=== PATIENT | female | born 1965 | race Caucasian/White ===

== ENCOUNTER → 2016-10-09 | Outpatient (CLI) | payer OTHER ==
--- NOTE | 2016-10-09 13:33 | MM ---
Reason for exam: additional evaluation requested from prior study. Last mammogram was performed 11 months ago. History: Patient is postmenopausal. Family history of breast cancer in aunt at age 65. Benign MG stereo VAD BX RT of the right breast, November 24, 2015. Physical Findings: Nurse did not find any significant physical abnormalities on exam. MG Diagnostic Mammo w CAD HEMA Bilateral CC and MLO view(s) were taken. Prior study comparison: November 15, 2015, right breast MG work up mamm w CAD RT. November 08, 2015, bilateral MG screening mammo w CAD. The breast tissue is heterogeneously dense. This may lower the sensitivity of mammography. Finding: There are typically benign round, grouped/clustered calcifications in the upper outer quadrant, posterior position of the right breast. Previous mammotome biopsy in the right breast x 2. These results were verbally communicated with the patient and result sheet given to the patient on 10/09/16. ASSESSMENT: Benign, BI-RAD 2 RECOMMENDATION: Routine screening mammogram of both breasts in 1 year.
== END | disposition home or self-care (01) ==
LOC: RADMAMWWP 12:50
PROVIDERS: ATTEND Family Medicine
DX: R92.8 Other abnormal and inconclusive findings on diagnostic imaging of breast (principal)

== ENCOUNTER 2024-11-30 12:38 | Observation (INO) | payer OTHER ==
--- NOTE | 2024-11-30 12:48 | ED ---
General Adult HPI - General Chief complaint: Chest Pain Stated complaint: Chest Pain Time Seen by Provider: 11/30/24 12:40 Source: patient, EMS Mode of arrival: EMS Limitations: no limitations - History of Present Illness Initial comments: Patient presents to the ED by ambulance for evaluation. Patient states that she had stopped taking her blood pressure medications for about 2 months (due to insurance reasons), but she was restarted on losartan 3 days ago. Patient states that she was checking her blood pressure readings this morning, and they continued to increase, so she called for an ambulance. She states that her highest blood pressure reading was in the 200s over 100s. Patient states that she has been taking her losartan as prescribed. Patient also reports having chest pain in the ambulance, and she states that she was given 3 sublingual nitroglycerin tabs with complete resolution of her chest pain. Patient states that she did also have associated dyspnea, nausea and lightheadedness. Patient denies having any chest pain or symptoms currently. Patient was also given aspirin by EMS. Patient denies trauma or injury, fever or chills, headache, focal numbness/weakness/neuro deficit, visual changes, speech difficulty, back pain, pleuritic pain, cough or cold symptoms, palpitations, syncope, abdominal pain, vomiting or diarrhea, bloody or melanotic stool, dysuria or urinary symptoms, decreased urine output, leg or calf swelling or pain, or any other symptoms or complaints. - Related Data Allergies Allergy/AdvReac Type Severity Reaction Status Date / Time Sulfa (Sulfonamide AdvReac Swelling Verified 11/30/24 12:44 Antibiotics) Review of Systems ROS Statement: Those systems with pertinent positive or pertinent negative responses have been documented in the HPI. ROS Other: All systems not noted in ROS Statement are negative. Past Medical History Past Medical History: Diabetes Mellitus, Hypertension Past Surgical History: Cholecystectomy, Hysterectomy Past Psychological History: Anxiety, Depression Smoking Status: Current every day smoker Past Alcohol Use History: Occasional Past Drug Use History: Marijuana General Exam Limitations: no limitations General appearance: alert, in no apparent distress Eye exam: Present: normal appearance ENT exam: Present: mucous membranes moist Neck exam: Present: other (Trachea is in midline) Respiratory exam: Present: normal lung sounds bilaterally. Absent: respiratory distress, wheezes, rales, rhonchi, stridor, chest wall tenderness Cardiovascular Exam: Present: regular rate, normal rhythm, normal heart sounds, other (Normal radial pulses bilaterally) GI/Abdominal exam: Present: soft. Absent: distended, tenderness, guarding Extremities exam: Present: other (Negative Homans' sign bilaterally). Absent: tenderness, pedal edema, calf tenderness Neurological exam: Present: alert, oriented X3 Psychiatric exam: Present: normal affect Skin exam: Present: warm, dry, normal color Course Vital Signs 11/30/24 11/30/24 12:40 13:23 Temperature 99.1 F Pulse Rate 91 72 Respiratory 18 16 Rate Blood Pressure 196/99 166/87 O2 Sat by Pulse 98 97 Oximetry - Reevaluation(s) Reevaluation #1: 11/30/24 13:50 Patient continues to deny having any chest pain while in the ED. Patient's blood pressure has now improved to 166/87. Patient denies development of any new symptoms while in the ED. Patient remains alert and breathing comfortably. Patient and son are aware the patient's test results, and patient agrees with hospital admission at this time. 11/30/24 13:59 Case, H&P and test results were discussed with [facility] RN Basil Stoner. She accepts hospital admission on behalf of herself and Dr. Allan. She requests cardiology consultation, as well as placing an order for an echocardiogram. She has no further recommendations at this time. EKG Findings - EKG Comments: EKG Findings:: ED physician interpretation (interpreted by me): Normal sinus rhythm, ventricular rate of 75 bpm, normal NJ and QRS intervals, normal QT interval, normal axis, nonspecific ST and T wave abnormality, no ST elevation Medical Decision Making - Medical Decision Making Was pt. sent in by a medical professional or institution (, PA, INFUSION RN, urgent care, hospital, or snf...) When possible be specific @ -No Did you speak to anyone other than the patient for history (EMS, parent, family, police, friend...)? What history was obtained from this source @ -No Did you review nursing and triage notes (agree or disagree)? Why? @ -I reviewed and agree with nursing and triage notes Were old charts reviewed (outside hosp., previous admission, EMS record, old EKG, old radiological studies, urgent care reports/EKG's, snf records)? Report findings @ -No old charts were reviewed Differential Diagnosis (chest pain, altered mental status, abdominal pain women, abdominal pain men, vaginal bleeding, weakness, fever, dyspnea, syncope, headache, dizziness, GI bleed, back pain, seizure, CVA, palpatations, mental health, musculoskeletal)? @ -Hypertension, hypertensive urgency, hypertensive emergency, chest pain, ACS/CO, dysrhythmia, lightheadedness, electrolyte abnormality, dehydration, dyspnea, COPD, asthma, CHF, pleural effusion, pneumonia, chest wall pain, esophageal spasm, GERD, anxiety, medication noncompliance, medication reaction, this is not meant to be a complete list. EKG interpreted by me (3pts min.). @ -As above X-rays interpreted by me (1pt min.). @ -Chest x-ray was reviewed myself and shows no acute cardiopulmonary process. I agree with the radiologist's interpretation as above. CT interpreted by me (1pt min.). @ -None done U/S interpreted by me (1pt. min.). @ -None done What testing was considered but not performed or refused? (CT, X-rays, U/S, labs)? Why? @ -None What meds were considered but not given or refused? Why? @ -None Did you discuss the management of the patient with other professionals (professionals i.e. , PA, INFUSION RN, lab, RT, psych nurse, social sciences chair, die attaching machine tender, teacher, systems support officer, dependency case manager)? Give summary @ -As above. Was smoking cessation discussed for >3mins.? @ -No Was critical care preformed (if so, how long)? @ -No Were there social determinants of health that impacted care today? How? (Homelessness, low income, unemployed, alcoholism, drug addiction, transp ortation, low edu. Level, literacy, decrease access to med. care, senior living, rehab)? @ -No Was there de-escalation of care discussed even if they declined (Discuss DNR or withdrawal of care, Hospice)? DNR status @ -No What co-morbidities impacted this encounter? (DM, HTN, Smoking, COPD, CAD, Cancer, CVA, ARF, Chemo, Hep., AIDS, mental health diagnosis, sleep apnea, morbid obesity)? @ -None Was patient admitted / discharged? Hospital course, mention meds given and route, prescriptions, significant lab abnormalities, going to OR and other pertinent info. @ -Patient's blood pressure has improved since coming to the ED. Patient has been chest pain-free while in the ED. Patient's EKG shows nonspecific findings, and there is no old EKG available for comparison at this time. Patient's initial troponin is negative. Patient's labs are fairly unremarkable. Patient's chest x-ray is also unremarkable. Given the patient's symptoms and cardiac risk factors, will admit the patient to the hospital for cardiac monitoring, serial troponins, cardiology consultation and further evaluation/care. [facility] RN Basil Stoner has accepted hospital admission. Patient agrees with this plan. Undiagnosed new problem with uncertain prognosis? @ -No Drug Therapy requiring intensive monitoring for toxicity (Heparin, Nitro, Insulin, Cardizem)? @ -No Were any procedures done? @ -No Diagnosis/symptom? @ -Hypertension Acute, or Chronic, or Acute on Chronic? @ -Acute on chronic Uncomplicated (without systemic symptoms) or Complicated (systemic symptoms)? @ -Default Side effects of treatment? @ -No Exacerbation, Progression, or Severe Exacerbation? @ -No Poses a threat to life or bodily function? How? (Chest pain, USA, CO, pneumonia, PE, COPD, DKA, ARF, appy, cholecystitis, CVA, Diverticulitis, Homicidal, Suicidal, threat to staff... and all critical care pts) @ -No Diagnosis/symptom? @ -Chest pain Acute, or Chronic, or Acute on Chronic? @ -Acute Uncomplicated (without systemic symptoms) or Complicated (systemic symptoms)? @ -Default Side effects of treatment? @ -None Exacerbation, Progression, or Severe Exacerbation] @ -No Poses a threat to life or bodily function? @ -No - Lab Data Result diagrams: 11/30/24 12:56 11/30/24 12:56 Lab Results 11/30/24 11/30/24 11/30/24 Range/Units 12:56 12:56 12:56 WBC 7.85 (4.50-10.00) 10*3/uL RBC 4.04 L (4.10-5.20) 10*6/uL Hgb 12.6 (12.0-15.0) g/dL Hct 35.3 L (37.2-46.3) % MCV 87.4 (80.0-97.0) fL MCH 31.2 (27.0-32.0) pg MCHC 35.7 (32.0-37.0) g/dL Plt Count 232 (140-440) 10*3/uL MPV 10.3 (9.5-12.2) fL Immature Gran % (Auto) 0.3 % Neutrophils % 74.0 % Lymphocytes % 20.4 % Monocytes % 4.3 % Eosinophils % 0.4 % Basophils % 0.6 % Immature Gran # 0.02 (0.00-0.04) 10*3/uL Neutrophils # 5.81 (1.80-7.70) 10*3/uL Lymphocytes # 1.60 (0.90-5.00) 10*3/uL Monocytes # 0.34 (0.20-1.00) 10*3/uL Eosinophils # 0.03 L (0.04-0.35) 10*3/uL Basophils # 0.05 (0.00-0.10) 10*3/uL PT 10.5 (10.0-12.5) sec INR 0.9 (<1.2) APTT 23.5 (22.0-30.0) sec Sodium 131 L (137-145) mmol/L Potassium 4.3 (3.5-5.1) mmol/L Chloride 101 (98-107) mmol/L Carbon Dioxide 22 (22-30) mmol/L Anion Gap 8 mmol/L BUN 9 (7-17) mg/dL Creatinine 0.49 L (0.52-1.04) mg/dL Est GFR (CKD-EPI)AfAm >90 (>60 ml/min/1.73 sqM) Est GFR (CKD-EPI)NonAf >90 (>60 ml/min/1.73 sqM) Glucose 194 H (74-99) mg/dL Calcium 9.7 (8.4-10.2) mg/dL Magnesium 1.7 (1.6-2.3) mg/dL Total Bilirubin 0.7 (0.2-1.3) mg/dL AST 33 (14-36) U/L ALT 31 (4-34) U/L Alkaline Phosphatase 84 (38-126) U/L Troponin I (0.000-0.034) ng/mL NT-Pro-B Natriuret Pep 250 pg/mL Total Protein 7.1 (6.3-8.2) g/dL Albumin 4.6 (3.5-5.0) g/dL 11/30/24 Range/Units 12:56 WBC (4.50-10.00) 10*3/uL RBC (4.10-5.20) 10*6/uL Hgb (12.0-15.0) g/dL Hct (37.2-46.3) % MCV (80.0-97.0) fL MCH (27.0-32.0) pg MCHC (32.0-37.0) g/dL Plt Count (140-440) 10*3/uL MPV (9.5-12.2) fL Immature Gran % (Auto) % Neutrophils % % Lymphocytes % % Monocytes % % Eosinophils % % Basophils % % Immature Gran # (0.00-0.04) 10*3/uL Neutrophils # (1.80-7.70) 10*3/uL Lymphocytes # (0.90-5.00) 10*3/uL Monocytes # (0.20-1.00) 10*3/uL Eosinophils # (0.04-0.35) 10*3/uL Basophils # (0.00-0.10) 10*3/uL PT (10.0-12.5) sec INR (<1.2) APTT (22.0-30.0) sec Sodium (137-145) mmol/L Potassium (3.5-5.1) mmol/L Chloride (98-107) mmol/L Carbon Dioxide (22-30) mmol/L Anion Gap mmol/L BUN (7-17) mg/dL Creatinine (0.52-1.04) mg/dL Est GFR (CKD-EPI)AfAm (>60 ml/min/1.73 sqM) Est GFR (CKD-EPI)NonAf (>60 ml/min/1.73 sqM) Glucose (74-99) mg/dL Calcium (8.4-10.2) mg/dL Magnesium (1.6-2.3) mg/dL Total Bilirubin (0.2-1.3) mg/dL AST (14-36) U/L ALT (4-34) U/L Alkaline Phosphatase (38-126) U/L Troponin I <0.012 (0.000-0.034) ng/mL NT-Pro-B Natriuret Pep pg/mL Total Protein (6.3-8.2) g/dL Albumin (3.5-5.0) g/dL - Radiology Data Chest x-ray: No acute cardiopulmonary disease/process. Disposition Clinical Impression: Chest pain, Hypertension Disposition: ADMITTED IP TO THIS HOSP Condition: Stable Is patient prescribed a controlled substance at d/c from ED?: No Referrals: Junior Mohamud MD [Primary Care Provider] - 1-2 days Time of Disposition: 14:00
[2024-11-30 13:04] LABS: Basophils # (A) 0.05 10*3/uL (0.00-0.10); Basophils % (A) 0.6 %; Eosinophils # (A) 0.03 10*3/uL (0.04-0.35); Eosinophils % (A) 0.4 %; HCT 35.3 % (37.2-46.3); HGB 12.6 g/dL (12.0-15.0); Lymphocytes % (A) 20.4 %; MCH 31.2 pg (27.0-32.0); MCHC 35.7 g/dL (32.0-37.0); MCV 87.4 fL (80.0-97.0); Mean Platelet Volume 10.3 fL (9.5-12.2); Monocytes # (A) 0.34 10*3/uL (0.20-1.00); Monocytes % (A) 4.3 %; Neutrophils # (A) 5.81 10*3/uL (1.80-7.70); Platelet Count 232 10*3/uL (140-440); RBC 4.04 10*6/uL (4.10-5.20); RDW 13.2 % (11.5-14.5); WBC 7.85 10*3/uL (4.50-10.00)
[2024-11-30] MEDS: NITROGLYCERIN OINT 1 INCH/GM PACKET TOPICAL STA (13:06)
--- NOTE | 2024-11-30 13:08 | XR ---
EXAMINATION TYPE: XR chest 2V DATE OF EXAM: 11/30/2024 1:05 PM COMPARISON: None CLINICAL INDICATION: Female, 59 years old with history of Chest Pain; [facility] TECHNIQUE: XR chest 2V Frontal and lateral views of the chest. FINDINGS: Lungs/Pleura: There is no evidence of pleural effusion, focal consolidation, or pneumothorax. Pulmonary vascularity: Unremarkable. Heart/mediastinum: Cardiomediastinal silhouette is unremarkable. Musculoskeletal: No acute osseous pathology. Other findings: None IMPRESSION: No acute cardiopulmonary disease/process. [facility], , 11/30/2024 1:06 PM
[2024-11-30 13:13] LABS: ALT 31 U/L (4-34); AST 33 U/L (14-36); African American GFR (CKD) >90 (>60 ml/min/1.73 sqM); Albumin 4.6 g/dL (3.5-5.0); Alkaline Phosphatase 84 U/L (38-126); Anion Gap 8 mmol/L; Blood Urea Nitrogen 9 mg/dL (7-17); Calcium 9.7 mg/dL (8.4-10.2); Carbon Dioxide 22 mmol/L (22-30); Chloride 101 mmol/L (98-107); Glucose 194 mg/dL (74-99); INR 0.9 (<1.2); Magnesium 1.7 mg/dL (1.6-2.3); Non-African American GFR(CKD) >90 (>60 ml/min/1.73 sqM); Partial Thromboplastin Time 23.5 sec (22.0-30.0); Potassium 4.3 mmol/L (3.5-5.1); Prothrombin Time 10.5 sec (10.0-12.5); Sodium 131 mmol/L (137-145); Total Bilirubin 0.7 mg/dL (0.2-1.3); Total Protein 7.1 g/dL (6.3-8.2)
[2024-11-30 13:22] LABS: NT-Pro-B-Type Natriuretic Pept 250 pg/mL
[2024-11-30] MEDS ORDERED: NALOXONE 0.4 MG/ML 1 ML VIAL IV PRN (14:03)
[2024-11-30] MEDS ORDERED: ACETAMINOPHEN TAB 325 MG TAB PO PRN (17:17)
--- NOTE | 2024-11-30 17:30 | P.HPIM ---
History of Present Illness H&P Date: 11/30/24 History of Presenting Illness: Patient is a pleasant 59-year-old female with a past medical history of hypertension and nicotine dependence. Patient reports she had some insurance issues and stopped taking her medications about 2 months ago but has been ex periencing uncontrolled blood pressures and was restarted on her home medication regimen with losartan 3 days ago. Patient states she was checking her blood pressures at home and had recurrent blood pressures 200s over 100s so she called EMS for transport to the hospital. Patient reports upon EMS arrival she started experiencing some midsternal chest pain/discomfort radiating into left shoulder and down left arm accompanied by nausea and shortness of breath. EMS administered 3 sublingual nitroglycerin tablets along with aspirin 324 mg x 1 dose. Patient reported full resolution of chest pain upon arrival to our facility. Patient denies having any recent illnesses or exposure to known ill contacts, headache, lightheadedness, dizziness, changes in vision or hearing, palpitations, cough or congestion, abdominal pain, vomiting, or experiencing any numbness/tingling/weakness/swelling in her extremities. She report broken tooth left upper molar with pain and mild swelling. Upon arrival to our facility, patient underwent evaluation in the emergency department. Vital signs on arrival show blood pressure 196/99, heart rate 91, respiratory rate 18, temp 99.1 F, and SpO2 of 98% on room air. EKG completed showing normal sinus rhythm at 75 bpm basic T wave Abnormalities in inferior leads II and aVF. Chest x-ray completed negative for acute cardiopulmonary process. Labs completed and reviewed. CBC showing no significant abnormalities. Coagulation profile normal findings. BMP showing hyponatremia with sodium of 131 and hyperglycemia with blood glucose of 194. Magnesium slightly low at 1.7. Liver profile unremarkable. Troponin was negative at less than 0.012 and proBNP was 250. Review of systems: Pertinent positives and negatives as discussed in HPI, a complete review of systems was performed and all other systems are negative. Physical exam: Vital signs reviewed and stable. General: Nontoxic, no distress and appears stated age. Derm: Skin warm and dry, normal coloration for ethnicity. Head: Atraumatic, normocephalic and symmetric. Eyes: EOM's intact, no lid lag, and anicteric sclera Mouth: no lip lesions, mucus membranes moist. Poor dentition Cardiovascular: regular rate and rhythm with normal S1S2, no murmur, positive posterior tibial pulses bilaterally, and cap refill < 2 seconds. Lungs: Respirations even, regular, and unlabored on room air. Lungs CTA, no rho nchi, no rales, no wheezing, and no accessory muscle usage. Abdominal: soft, nontender to palpation, no guarding, no appreciable organomegaly Ext: ROM intact. No gross muscle atrophy, no edema, no contractures Neuro: Speech clear, face symmetrical and CN II-XII grossly intact with no noted focal neuro deficits Psych: Alert and oriented to person, place, time, and situation. Appropriate and pleasant affect. Assessment and Plan of Care: Chest pain, rule out acute coronary event Hypertensive urgency -Cardiology consulted, appreciate recommendations -Telemetry monitoring -Trend troponins -Cardiac diet, NPO at midnight -Aspirin 81 mg daily, atorvastatin 40 mg nightly, and losartan 100 mg nightly -Lipid profile with a.m. labs. -Echocardiogram Dental pain -Patient reports pain in broken to his left upper molar with mild swelling surrounding. - Start patient on oral antibiotics with amoxicillin 1000 mg p.o. x 1 dose followed by 500 mg every 8 hours x 3 days. - Order placed for x-ray to rule out dental abscess. - Symptomatic care and pain management with Orajel, Tylenol 650 mg every 6 hours as needed for mild pain and/or fever and Elizabeth 5milligram tablets every 4 hours as needed for moderate pain. Hyperglycemia -Blood glucose 194. Patient denies history of diabetes mellitus. Order placed for hemoglobin A1c. Nicotine dependence -Patient reports 40-year smoking history of 1 pack/day. - Recommend smoking cessation. Order placed for nicotine patch 21 mg daily. Data and imaging reviewed: -As stated above in HPI The painnt is admitted with an anticipated less than 2 midnight stay for evaluation of chest pain and hypertensive urgency CODE STATUS full code DVT prophylaxis: Lovenox Discussed with: Patient, RN, and ED physician Anticipated discharge date: 24 to [address]: Home Patient was seen independently by Nurse Practitioner. This document was prepared using [employer] dictation software. Please allow for errors in catering truck driver while rare they do occur. Basil Stoner NP rendered care for this patient independently, reviewed the findin gs and plan as documented in the note above and agree with plan. I did not physically speak with or examine the patient on this date. Past Medical History Past Medical History: Diabetes Mellitus, Hypertension Past Surgical History: Cholecystectomy, Hysterectomy Past Psychological History: Anxiety, Depression Smoking Status: Current every day smoker Past Alcohol Use History: Occasional Past Drug Use History: Marijuana Medications and Allergies Home Medications Medication Instructions Recorded Confirmed Type Acetaminophen Tab [Tylenol Tab] 1,500 mg PO Q6H PRN 11/30/24 11/30/24 History Atorvastatin [Lipitor] 40 mg PO HS 11/30/24 11/30/24 History Cetirizine HCl [Zyrtec] 10 mg PO HS 11/30/24 11/30/24 History Citalopram Hydrobromide [CeleXA] 10 mg PO HS 11/30/24 11/30/24 History Ibuprofen [Motrin Ib] 800 mg PO Q6H PRN 11/30/24 11/30/24 History Losartan Potassium 100 mg PO HS 11/30/24 11/30/24 History Allergies Allergy/AdvReac Type Severity Reaction Status Date / Time Sulfa (Sulfonamide Allergy Swelling Verified 11/30/24 14:37 Antibiotics) tongue sulfamethoxazole Allergy Swelling Verified 11/30/24 14:37 [From Bactrim] tongue trimethoprim [From Bactrim] Allergy Swelling Verified 11/30/24 14:37 tongue Physical Exam Vitals: Vital Signs Temp Pulse Resp BP Pulse Ox 11/30/24 13:23 72 16 166/87 97 11/30/24 12:40 99.1 F 91 18 196/99 98 Intake and Output 11/29/24 11/30/24 11/30/24 22:59 06:59 14:59 Other: Weight 58.967 kg Results CBC & Chem 7: 11/30/24 12:56 11/30/24 12:56 Labs: Abnormal Lab Results - Last 24 Hours (Table) 11/30/24 11/30/24 Range/Units 12:56 12:56 RBC 4.04 L (4.10-5.20) 10*6/uL Hct 35.3 L (37.2-46.3) % Eosinophils # 0.03 L (0.04-0.35) 10*3/uL Sodium 131 L (137-145) mmol/L Creatinine 0.49 L (0.52-1.04) mg/dL Glucose 194 H (74-99) mg/dL
[2024-11-30] MEDS: NICOTINE 21MG/24HR PATCH TRANSDERM SCH (17:47)
[2024-11-30] MEDS: HYDROcodone/APAP 5-325MG 1 EACH TAB PO PRN (17:47)
[2024-11-30] MEDS: AMOXICILLIN 500 MG CAP PO ONE (17:58)
[2024-11-30] MEDS: BENZOCAINE 20 % GEL 11.9 GM TUBE MM ONE (17:58)
--- NOTE | 2024-11-30 18:49 | XR ---
EXAMINATION TYPE: XR facial bones limited INDICATION: Patient age:Female; 59 years old; Reason for study: Left upper jaw, r/o dental abscess L upper molar; [facility]. pain COMPARISON: None TECHNIQUE: The facial bones were evaluated in frontal and lateral projections. FINDINGS: No acute fracture or dislocation. No discrete osseous erosion. Right maxillary impacted wisdom tooth is identified. Dental fillings identified. No definitive periapical lucency surrounding the left uppe r molar. Multilevel degenerative changes of the cervical spine with disc space narrowing, endplate sc lerosis, and anterior osteophytosis. The visualized paranasal sinuses appear clear. No gross evidence for soft tissue swelling. IMPRESSION: 1. No acute fracture or dislocation. 2. Impacted right maxillary wisdom tooth. No gross evidence of dental abscess with the limitations o f the radiograph. Consider further evaluation with CT if there is continued clinical concern for dent al abscess. [facility], , 11/30/2024 6:46 PM
[2024-11-30] MEDS: CITALOPRAM HYDROBROMIDE 10 MG TAB PO SCH (21:18)
[2024-11-30] MEDS: ATORVASTATIN 40 MG TAB PO SCH (21:19)
[2024-11-30] MEDS: LORATADINE 10 MG TAB PO SCH (21:19)
[2024-11-30] MEDS: LOSARTAN 50 MG TAB PO SCH (21:19)
[2024-12-01] MEDS: AMOXICILLIN 500 MG CAP PO SCH (00:09)
[2024-12-01] MEDS: ASPIRIN 81 MG PO SCH (07:57)
[2024-12-01] MEDS: ENOXAPARIN 40 MG/0.4 ML SYRINGE SQ SCH (07:57)
[2024-12-01 08:03] VITALS: BP 138/66; PULSE 62; RESP 16; TEMP 98.2
[2024-12-01 08:27] LABS: ALT 34 U/L (8-44); AST 32 U/L (13-35); Albumin 4.2 g/dL (3.8-4.9); Albumin/Globulin Ratio 2.21 Ratio (1.60-3.17); Alkaline Phosphatase 73 U/L (41-126); BUN/Creat Ratio 20.33 Ratio (12.00-20.00); Blood Urea Nitrogen 12.2 mg/dL (9.0-27.0); Calcium 9.2 mg/dL (8.7-10.3); Carbon Dioxide 23.5 mmol/L (21.6-31.8); Chloride 101 mmol/L (96-109); Globulin 1.9 g/dL (1.6-3.3); Glucose 155 mg/dL (70-110); Potassium 4.2 mmol/L (3.5-5.5); Sodium 136 mmol/L (135-145); Total Bilirubin 0.4 mg/dL (0.3-1.2); Total Protein 6.1 g/dL (6.2-8.2)
[2024-12-01 08:43] LABS: Basophils # (A) 0.06 X 10*3/uL (0.00-0.10); Basophils % (A) 0.9 %; Eosinophils # (A) 0.21 X 10*3/uL (0.04-0.35); Eosinophils % (A) 3.2 %; HCT 36.7 % (37.2-46.3); HGB 12.1 g/dL (12.0-15.0); Lymphocytes # (A) 3.43 X 10*3/uL (0.90-5.00); Lymphocytes % (A) 51.9 %; MCV 91.1 FL (80.0-97.0); Mean Platelet Volume 10.9 FL (9.5-12.2); Monocytes # (A) 0.54 X 10*3/uL (0.20-1.00); Monocytes % (A) 8.2 %; NRBC Per 100 WBC 0 X 10*3/uL (0.00-0.01); Neutrophils # (A) 2.36 X 10*3/uL (1.80-7.70); Neutrophils % (A) 35.6 %; Platelet Count 232 X 10*3/uL (140-440); RBC 4.03 X 10*6/uL (4.10-5.20); RDW 13.6 % (11.5-14.5); WBC 6.61 X 10*3/uL (4.50-10.00)
[2024-12-01] MEDS: PIOGLITAZONE 15 MG TAB PO SCH (10:29)
[2024-12-01] MEDS: metFORMIN 500 MG TAB PO SCH (10:29)
--- NOTE | 2024-12-01 10:42 | P.CRDCN ---
History of Present Illness History of present illness: HISTORY OF PRESENTING ILLNESS This is a pleasant 59-year-old female past medical history significant for hypertension, diabetes mellitus, dyslipidemia and chronic nicotine dependen ce. 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 We have been asked to see in consultation for chest pain and hypertension. She admits that she has only been back on her medications for the past 3 days. She went through an episode of lack of insurance and was therefore not following with her primary care physician or taking any of her recommended medications. She indicates blood pressure at home was over 200 systolic. She also has been having significant dental pain which she thinks may have contributed to her blood pressure being elevated. She has an appointment with a dentist later this week. She has no further symptoms of chest discomfort. DIAGNOSTICS EKG reveals sinus mechanism, heart rate [address] or T wave abnormalities noted. Telemetry tracings indicate sinus mechanism. Chest xray negative for any acute cardiopulmonary process. Laboratory reviewed, WBC 6, hemoglobin 12.1, platelets 232, sodium 136, potassium 4.2, creatinine 0.6, hemoglobin A1c 7.7, troponin negative x 3, NT proBNP 250. Current cardiac medications include losartan 100 mg daily and Lipitor 40 mg at bedtime. REVIEW OF SYSTEMS At the time of my exam: CONSTITUTIONAL: Denies fever or chills. CARDIOVASCULAR: Denies chest pain, shortness of breath, orthopnea, PND or palpitations. RESPIRATORY: Denies cough. GASTROINTESTINAL: Denies abdominal pain, diarrhea, constipation, nausea or vomit ing. MUSCULOSKELETAL: Denies myalgias. NEUROLOGIC: Denies numbness, tingling, headache or weakness. ENDOCRINE: Denies fatigue, weight change, polydipsia or polyurina. GENITOURINARY: Denies burning, hematuria or urgency with micturation. HEMATOLOGIC: Denies history of anemia or bleeding. PHYSICAL EXAMINATION Blood pressure 138/66 heart rate 62 afebrile and maintaining oxygen saturation on room air. CONSTITUTIONAL: No apparent distress. HEENT: Head is normocephalic. Pupils are equal, round. Sclerae anicteric. Mucous membranes of the mouth are moist. No JVD. No carotid bruit. CHEST EXAMINATION: Lungs are clear to auscultation. No chest wall tenderness is noted on palpation or with deep breathing. HEART EXAMINATION: Regular rate and rhythm. S1, S2 heard. No murmurs, gallops or rub. ABDOMEN: Soft, nontender. EXTREMITIES: 2+ peripheral pulses, no lower extremity edema and no calf tender ness. NEUROLOGIC EXAMINATION: Patient is awake, alert and oriented x3. ASSESSMENT Chest pain, atypical Hypertension Dyslipidemia Diabetes mellitus Chronic nicotine dependence PLAN An acute coronary event has been ruled out. Echocardiogram has been ordered and will be reviewed. Optimize glucose control with Actos and Glucophage. Continue losartan. Stable for discharge from a cardiac perspective. We will see her in the office the week of December 21 and do an outpatient stress test. Thank you kindly for this consultation. Nurse Practitioner note has been reviewed, I agree with a documented findings and plan of care. Patient was seen and examined. Past Medical History Past Medical History: Diabetes Mellitus, Hypertension History of Any Multi-Drug Resistant Organisms: None Reported Past Surgical History: Cholecystectomy, Hysterectomy Past Psychological History: Anxiety, Depression Smoking Status: Current every day smoker Past Alcohol Use History: Occasional Past Drug Use History: Marijuana Medications and Allergies Home Medications Medication Instructions Recorded Confirmed Type Acetaminophen Tab [Tylenol Tab] 1,500 mg PO Q6H PRN 11/30/24 11/30/24 History Atorvastatin [Lipitor] 40 mg PO HS 11/30/24 11/30/24 History Cetirizine HCl [Zyrtec] 10 mg PO HS 11/30/24 11/30/24 History Citalopram Hydrobromide [CeleXA] 10 mg PO HS 11/30/24 11/30/24 History Ibuprofen [Motrin Ib] 800 mg PO Q6H PRN 11/30/24 11/30/24 History Losartan Potassium 100 mg PO HS 11/30/24 11/30/24 History Allergies Allergy/AdvReac Type Severity Reaction Status Date / Time Sulfa (Sulfonamide Allergy Swelling Verified 11/30/24 14:37 Antibiotics) tongue sulfamethoxazole Allergy Swelling Verified 11/30/24 14:37 [From Bactrim] tongue trimethoprim [From Bactrim] Allergy Swelling Verified 11/30/24 14:37 tongue Physical Exam Vitals: Vital Signs Temp Pulse Pulse Resp BP BP BP 12/01/24 06:57 98.2 F 62 16 138/66 12/01/24 01:20 98.1 F 63 17 145/73 11/30/24 20:00 97.6 F 64 17 153/73 11/30/24 16:50 97.7 F 71 16 156/73 11/30/24 16:02 97.8 F 68 19 145/72 11/30/24 15:05 79 18 169/81 11/30/24 13:23 72 16 166/87 11/30/24 12:40 99.1 F 91 18 196/99 Pulse Ox 12/01/24 06:57 96 12/01/24 01:20 97 11/30/24 20:00 95 11/30/24 16:50 94 L 11/30/24 16:02 98 11/30/24 15:05 97 11/30/24 13:23 97 11/30/24 12:40 98 Intake and Output 11/30/24 12/01/24 12/01/24 22:59 06:59 14:59 Other: Voiding Method Toilet Toilet # Voids 2 2 Results 12/01/24 04:49 12/01/24 04:49 Cardiac Enzymes 11/30/24 11/30/24 11/30/24 Range/Units 12:56 12:56 16:01 AST 33 (14-36) U/L Troponin I <0.012 <0.012 (0.000-0.034) ng/mL 11/30/24 12/01/24 Range/Units 20:20 04:49 AST 32 (14-36) U/L Troponin I <0.012 (0.000-0.034) ng/mL Coagulation 11/30/24 Range/Units 12:56 PT 10.5 (10.0-12.5) sec APTT 23.5 (22.0-30.0) sec CBC 11/30/24 12/01/24 Range/Units 12:56 04:49 WBC 7.85 6.61 (4.50-10.00) 10*3/uL RBC 4.04 L 4.03 L (4.10-5.20) 10*6/uL Hgb 12.6 12.1 (12.0-15.0) g/dL Hct 35.3 L 36.7 L (37.2-46.3) % Plt Count 232 232 (140-440) 10*3/uL Comprehensive Metabolic Panel 11/30/24 12/01/24 Range/Units 12:56 04:49 Sodium 131 L 136 (137-145) mmol/L Potassium 4.3 4.2 (3.5-5.1) mmol/L Chloride 101 101 (98-107) mmol/L Carbon Dioxide 22 23.5 (22-30) mmol/L BUN 9 12.2 (7-17) mg/dL Creatinine 0.49 L 0.6 (0.52-1.04) mg/dL Glucose 194 H 155 H (74-99) mg/dL Calcium 9.7 9.2 (8.4-10.2) mg/dL AST 33 32 (14-36) U/L ALT 31 34 (4-34) U/L Alkaline Phosphatase 84 73 (38-126) U/L Total Protein 7.1 6.1 L (6.3-8.2) g/dL Albumin 4.6 4.2 (3.5-5.0) g/dL Current Medications Generic Name Dose Route Start Last Admin Trade Name Freq PRN Reason Stop Dose Admin Acetaminophen 650 mg 11/30/24 17:17 Acetaminophen Tab 325 Mg Tab PO Q6HR PRN Mild Pain or Fever > 100.5 Hydrocodone Bitart/Acetaminophen 1 each 11/30/24 17:17 12/01/24 06:47 Hydrocodone/Apap 5-325mg 1 Each Tab PO 1 each Q4HR PRN Administration Moderate Pain (Scale 4 to 6) Amoxicillin 500 mg 12/01/24 00:00 12/01/24 07:57 Amoxicillin 500 Mg Cap PO 12/04/24 00:00 500 mg Q8HR JOHN Administration Atorvastatin Calcium 40 mg 11/30/24 21:00 11/30/24 21:19 Atorvastatin 40 Mg Tab PO 40 mg HS JOHN Administration Citalopram Hydrobromide 10 mg 11/30/24 21:00 11/30/24 21:18 Citalopram Hydrobromide 10 Mg Tab PO 10 mg HS JOHN Administration Enoxaparin Sodium 40 mg 12/01/24 09:00 12/01/24 07:57 Enoxaparin 40 Mg/0.4 Ml Syringe SQ 40 mg DAILY JOHN Administration Loratadine 10 mg 11/30/24 21:00 11/30/24 21:19 Loratadine 10 Mg Tab PO 10 mg HS JOHN Administration Losartan Potassium 100 mg 11/30/24 21:00 11/30/24 21:19 Losartan 50 Mg Tab PO 100 mg HS JOHN Administration Metformin HCl 500 mg 12/01/24 09:30 12/01/24 10:29 Metformin 500 Mg Tab PO 500 mg BID-W/MEALS JOHN Administration Naloxone HCl 0.2 mg 11/30/24 14:03 Naloxone 0.4 Mg/Ml 1 Ml Vial IV Q2M PRN Opioid Reversal Nicotine 1 patch 11/30/24 17:15 12/01/24 07:57 Nicotine 21mg/24hr Patch TRANSDERM 1 patch DAILY JOHN Administration Pioglitazone HCl 15 mg 12/01/24 09:30 12/01/24 10:29 Pioglitazone 15 Mg Tab PO 15 mg DAILY JOHN Administration Intake and Output 11/30/24 12/01/24 12/01/24 22:59 06:59 14:59 Other: Voiding Method Toilet Toilet # Voids 2 2 12/01/24 04:49 12/01/24 04:49
--- NOTE | 2024-12-01 11:26 | P.DS ---
Providers Date of admission: 11/30/24 14:03 Expected date of discharge: 12/01/24 Attending physician: Georgette Allan MD Consults: 11/30/24 14:03 Consult Physician Urgent Consulting Provider: Saurabh Bynum Consult Reason/Comments: chest pain Do you want consulting provider notified?: Yes Primary care physician: Clay Arreola MD Hospital Course: Discharge Diagnosis: Chest pain, acute coronary event ruled out. EKG showing normal sinus rhythm. Troponins were trended all negative at less than 0.012 x 3 draws. Echocardiogram was completed showing a preserved EF of 60% with minimal mitral and tricuspid regurgitation, no pulmonary hypertension, and no pericardial effusion. Patient is medically optimized for discharge at this time, cardiology clearing patient from their perspective recommending outpatient follow-up in their office for outpatient stress testing. Hypertensive urgency. Resumed home medication regimen with losartan 100 mg nightly. Blood pressure stable upon discharge at 138/66. Dental pain/infection. X-ray showing no evidence of dental abscess. Patient has broken tooth left upper molar with mild swelling surrounding. She was given amoxicillin 1000 mg p.o. x 1 dose and discharged home on amoxicillin 500 mg every 8 hours for an additional 3 days. Newly diagnosed type II Diabetes mellitus. Patient hyperglycemic upon arrival with blood glucose of 194. Hemoglobin A1c was 7.7%. Patient was provided with glucometer and RN instructed on use. She was started on Glucophage and Actos. Nicotine dependence. Recommend smoking cessation. Prescription sent for nicotine patch 21 mg daily. Hospital Course: Patient is a pleasant 59-year-old female with a past medical history of hypertension and nicotine dependence. Patient reports she had some insurance issues and stopped taking her medications about 2 months ago but has been experiencing uncontrolled blood pressures and was restarted on her home medication regimen with losartan 3 days ago. Patient states she was checking her blood pressures at home and had recurrent blood pressures 200s over 100s so she called EMS for transport to the hospital. Patient reports upon EMS arrival she started experiencing some midsternal chest pain/discomfort radiating into left shoulder and down left arm accompanied by nausea and shortness of breath. EMS administered 3 sublingual nitroglycerin tablets along with aspirin 324 mg x 1 dose. Patient reported full resolution of chest pain upon arrival to our facility. Patient denies having any recent illnesses or exposure to known ill contacts, headache, lightheadedness, dizziness, changes in vision or hearing, palpitations, cough or congestion, abdominal pain, vomiting, or experiencing any numbness/tingling/weakness/swelling in her extremities. She report broken tooth left upper molar with pain and mild swelling. Upon arrival to our facility, patient underwent evaluation in the emergency department. Vital signs on arrival show blood pressure 196/99, heart rate 91, respiratory rate 18, temp 99.1 F, and SpO2 of 98% on room air. EKG completed showing normal sinus rhythm at 75 bpm with T wave Abnormalities in inferior leads II and aVF. Chest x-ray completed negative for acute cardiopulmonary process. Labs completed and reviewed. CBC showing no significant abnormalities. Coagulation profile normal findings. BMP showing hyponatremia with sodium of 131 and hyperglycemia with blood glucose of 194. Magnesium slightly low at 1.7. Liver profile unremarkable. Troponin was negative at less than 0.012 and proBNP was 250. Patient admitted under services with consultation to cardiology. Troponins were trended all negative at less than 0.012 x 3 draws. She had full resolution of chest pain and currently only complaint is dental pain. Facial x-ray completed showing an impacted right maxillary wisdom tooth but no evidence of dental abscess within the limitations of x-ray. Patient was evaluated by cardiology and echocardiogram was completed. Echocardiogram was completed showing a preserved EF of 60% with minimal mitral and tricuspid regurgitation, no pulmonary hypertension, and no pericardial effusion. Patient cleared from cardiac perspective for discharge. Hemoglobin A1c was 7.7%. Patient was provided with glucometer and RN instructed on use. She was started on Glucophage and Actos. Patient also placed on amoxicillin for dental infection, reports having an appointment on 12/03/2024 for evaluation. Patient is medically optimized for discharge at this time, cardiology clearing patient from their perspective recommending outpatient follow-up in their office for outpatient stress testing. Patient to follow-up outpatient with PCP in 1 to 2 days and cardiology in 2-weeks. Physical exam: Vital signs reviewed and stable. General: Nontoxic, no distress and appears stated age. Derm: Skin warm and dry, normal coloration for ethnicity. Head: Atraumatic, normocephalic and symmetric. Eyes: EOM's intact, no lid lag, and anicteric sclera Mouth: no lip lesions, mucus membranes moist. Poor dentition Cardiovascular: regular rate and rhythm with normal S1S2, no murmur, positive posterior tibial pulses bilaterally, and cap refill < 2 seconds. Lungs: Respirations even, regular, and unlabored on room air. Lungs CTA, no rhonchi, no rales, no wheezing, and no accessory muscle usage. Abdominal: soft, nontender to palpation, no guarding, no appreciable organomegal y Ext: ROM intact. No gross muscle atrophy, no edema, no contractures Neuro: Speech clear, face symmetrical and CN II-XII grossly intact with no noted focal neuro deficits Psych: Alert and oriented to person, place, time, and situation. Appropriate and pleasant affect. A total of 34 minutes of time were spent preparing this complex discharge summary. Pt was discharged on 12/01/2024 at 11:23 AM. Patient was seen independently by Nurse Practitioner. This document was prepared using [employer] dictation software. Please allow for errors in brick yard hand while rare they do occur. Basil Stoner NP rendered care for this patient independently, reviewed the findings and plan as documented in the note above. I did not physically speak with or examine the patient on this date. Patient Condition at Discharge: Stable Plan - Discharge Summary New Discharge Prescriptions: New Pioglitazone [Actos] 15 mg PO DAILY 30 Days #30 tab Amoxicillin 500 mg PO Q8HR 2 Days #7 cap metFORMIN HCL [Glucophage] 500 mg PO BID-W/MEALS 30 Days #60 tab Nicotine 21Mg/24Hr Patch [Habitrol] 1 patch TRANSDERM DAILY 30 Days #30 patch HYDROcodone/APAP 5-325MG [[place] 5-325] 1 each PO Q4HR PRN #18 tab PRN Reason: Moderate Pain (Scale 4 To 6) Continue Acetaminophen Tab [Tylenol] 1,500 mg PO Q6H PRN PRN Reason: Pain Citalopram Hydrobromide [CeleXA] 10 mg PO HS Atorvastatin [Lipitor] 40 mg PO HS Ibuprofen [Motrin Ib] 800 mg PO Q6H PRN PRN Reason: Pain Cetirizine HCl [Zyrtec] 10 mg PO HS Losartan Potassium 100 mg PO HS Discharge Medication List Acetaminophen Tab [Tylenol] 1,500 mg PO Q6H PRN 11/30/24 [History] Atorvastatin [Lipitor] 40 mg PO HS 11/30/24 [History] Cetirizine HCl [Zyrtec] 10 mg PO HS 11/30/24 [History] Citalopram Hydrobromide [CeleXA] 10 mg PO HS 11/30/24 [History] Ibuprofen [Motrin Ib] 800 mg PO Q6H PRN 11/30/24 [History] Losartan Potassium 100 mg PO HS 11/30/24 [History] Amoxicillin 500 mg PO Q8HR 2 Days #7 cap 12/01/24 [Rx] HYDROcodone/APAP 5-325MG [[place] 5-325] 1 each PO Q4HR PRN #18 tab 12/01/24 [Rx] Nicotine 21Mg/24Hr Patch [Habitrol] 1 patch TRANSDERM DAILY 30 Days #30 patch 12/01/24 [Rx] Pioglitazone [Actos] 15 mg PO DAILY 30 Days #30 tab 12/01/24 [Rx] metFORMIN HCL [Glucophage] 500 mg PO BID-W/MEALS 30 Days #60 tab 12/01/24 [Rx] Follow up Appointment(s)/Referral(s): Donna Vance MD [STAFF PHYSICIAN] - 1 Week (Office will call patient with appointment ) Clay Arreola MD [Primary Care Provider] - 1-2 Days Patient Instructions/Handouts: Chest Pain (DC), Type 2 Diabetes in Adults: New Diagnosis (DC), Hypertensive Crisis (DC), Toothache (GEN) Activity/Diet/Wound Care/Special Instructions: Activity: As tolerated. Take breaks as needed. Diet: Heart healthy and carb consistent diet. Special Instructions: Take all of your medications as directed and remember to keep all of your doctor's appointments and follow-up as needed. Recommend following up with dentist as scheduled on for broken/infected tooth. Cardiology recommending outpatient follow-up in their office for completion of stress test as they discussed with you. The echocardiogram was completed and per emergency department manager you are cleared for discharge prior to results, emergency department manager to follow-up with echocardiogram results and to review with you in office at your follow-up appointment. Thank you for allowing us to participate in your care, it was truly a pleasure having you for our patient!!! Discharge Disposition: HOME SELF-CARE
--- NOTE | 2024-12-01 11:47 | CA ---
Transthoracic Echo Report Name: Reena Perez Age: 59 Gender: F : 1965 Exam Date: 12/01/2024 08:31 Exam Location: [facility] Ht (in): 62 Wt (lb): 130 Ordering Physician: Eddy Tineo MD Attending/Referring Phys: Leveling Machine Operator Zuri Kenney RDCS Procedure CPT: Indications: Chest Pain Cardiac Hx: Technical Quality: Good Contrast 1: Total Dose (mL): Contrast 2: Total Dose (mL): MEASUREMENTS (Male / Female) Normal Values 2D ECHO LV Diastolic Diameter PLAX 4.6 cm 4.2 - 5.9 / 3.9 - 5.3 cm LV Systolic Diameter PLAX 3.2 cm IVS Diastolic Thickness 0.8 cm 0.6 - 1.0 / 0.6 - 0.9 cm LVPW Diastolic Thickness 0.8 cm 0.6 - 1.0 / 0.6 - 0.9 cm LV Relative Wall Thickness 0.4 RV Internal Dim ED PLAX 2.4 cm LVOT Diameter 1.6 cm LA Systolic Diameter LX 3.4 cm 3.0 - 4.0 / 2.7 - 3.8 cm LV Diastolic Volume MOD BP 76.2 cm??? 67 - 155 / 56 - 104 cm??? LV Systolic Volume MOD BP 24.2 cm??? - 58 / 19 - 49 cm??? LV Ejection Fraction MOD BP 68.2 % >= 55 % LV Cardiac Index MOD BP 1897.4 cm???/min???m??? LV Diastolic Volume MOD 4C 79.0 cm??? LV Systolic Volume MOD 4C 24.3 cm??? LV Ejection Fraction MOD 4C 69.2 % LV Cardiac Index MOD 4C 1998.9 cm???/min???m??? LV Diastolic Length 4C 7.4 cm LV Systolic Length 4C 5.8 cm LV Diastolic Volume MOD 2C 73.3 cm??? LV Systolic Volume MOD 2C 23.4 cm??? LV Ejection Fraction MOD 2C 68.1 % LV Cardiac Index MOD 2C 1823.5 cm???/min???m??? LV Diastolic Length 2C 7.4 cm LV Systolic Length 2C 6.0 cm LA Volume 46.9 cm??? 18 - 58 / 22 - 52 cm??? LA Volume Index 29.1 cm???/m??? 16 - 28 cm???/m??? DOPPLER MV Area PHT 2.9 cm??? Mitral E Point Velocity 74.0 cm/s Mitral A Point Velocity 66.4 cm/s Mitral E to A Ratio 1.1 MV Deceleration Time 264.1 ms TR Peak Velocity 225.7 cm/s TR Peak Gradient 20.4 mmHg Right Atrial Pressure 5.0 mmHg Pulmonary Artery Systolic Pressu 25.4 mmHg Right Ventricular Systolic Press 25.4 mmHg FINDINGS Left Ventricle Left ventricular ejection fraction is estimated at 60%. Normal Left ventricular size, wall thickness, systolic function with no obvious regional wall motion abnormalities. Right Ventricle Normal right ventricular size and function. Right ventricular systolic pressure within normal limits. Right Atrium Normal right atrial size. Left Atrium Mildly increased left atrial volume. Mitral Valve Mitral annular calcification. No mitral stenosis. Trace mitral regurgitation. Aortic Valve Trileaflet aortic valve. No aortic valve stenosis or regurgitation. Tricuspid Valve Structurally normal tricuspid valve. No tricuspid stenosis. Trace to mild tricuspid regurgitation. Pulmonic Valve Structurally normal pulmonic valve. No pulmonic stenosis. No pulmonic regurgitation. Pericardium No pericardial effusion. Aorta Normal size aortic root and proximal ascending aorta. CONCLUSIONS Normal LV size and systolic function. Minimal mitral and tricuspid regurgitation. No pulmonary hypertension. No pericardial effusion Previewed by: Dr. Donna Vance MD (Electronically Signed) Final Date: 01 Dec 2024 11:46
== END 2024-12-01 12:12 | disposition home or self-care (01) ==
LOC: EC 12:38 → 6NMEDSUR 14:03
PROVIDERS: ADMIT Student in an Organized Health Care Education/Training Program; ATTEND Student in an Organized Health Care Education/Training Program
DX: R07.89 Other chest pain (principal); I16.0 Hypertensive urgency; T46.5X6A Underdosing of other antihypertensive drugs, initial encounter; Z91.128 Patient's intentional underdosing of medication regimen for other reason; E11.65 Type 2 diabetes mellitus with hyperglycemia; E78.5 Hyperlipidemia, unspecified; I10 Essential (primary) hypertension; E87.1 Hypo-osmolality and hyponatremia; I08.1 Rheumatic disorders of both mitral and tricuspid valves; S02.5XXA Fracture of tooth (traumatic), initial encounter for closed fracture; K04.7 Periapical abscess without sinus; M25.512 Pain in left shoulder; M79.602 Pain in left arm; F17.210 Nicotine dependence, cigarettes, uncomplicated; Z79.899 Other long term (current) drug therapy; Z88.2 Allergy status to sulfonamides; Z88.1 Allergy status to other antibiotic agents; Z59.71 Insufficient health insurance coverage
CPT/HCPCS: 96372; 99285; 36415; 93005 ×2; 93306; 83880; 80053 ×2; 83735; 84484; 85025 ×2; 85610; 85730; 83036; 70140; 71046; G0378 ×2; S4990 ×2; J1650